=== PATIENT | female | born 1955 | race Caucasian/White ===

== ENCOUNTER 2021-05-20 10:37 | Emergency (ER) | payer BC ==
[2021-05-20] MEDS ORDERED: Sodium Chloride 0.9% 10 ML Syringe FLUSH PRN (10:54)
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
[2021-05-20] MEDS ORDERED: HYDROmorphone 1 MG/ML Syringe IVPUSH ONE ×4 (11:05→11:54)
[2021-05-20] MEDS ORDERED: Ondansetron 4 MG/2 ML SDV IV ONE (11:05)
[2021-05-20] MEDS ORDERED: Ondansetron 4 MG/2 ML SDV IVPUSH ONE (11:10)
[2021-05-20 11:26] LABS: PTT,PARTIAL THROMBOPLSTIN TIME 23.9 SEC (22.0-34.0)
[2021-05-20 11:30] LABS: ANION GAP 13.1 mEq/L (7-13); CHLORIDE,CL 104 mmol/L (98-107); SODIUM,NA 140 mmol/L (136-145)
[2021-05-20] MEDS ORDERED: HYDROmorphone 1 MG/ML Syringe ONE (11:51)
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
== END 2021-05-20 14:07 | disposition home or self-care (01) ==
LOC: DL.ED 10:37
DX: M54.50 Low back pain, unspecified (principal); G89.11 Acute pain due to trauma; M25.551 Pain in right hip
CPT/HCPCS: 36415; 71045; 72125; 72131; 72192; 80053; 80307; 82150; 84484; 85025; 85610; 85730; 86850; 86900; 86901; 96374; 96375; 96376; 99285-25; J1170; J2405